=== PATIENT | male | born 1950 | race Caucasian/White ===

== ENCOUNTER 2020-06-29 12:05 | Emergency (ER) | payer OTHER ==
[~2020-06-29] VITALS: Ht 167.6 cm; Wt 70.0 kg
[2020-06-29 15:30] VITALS: BP 136/76
== END 2020-06-29 15:55 | disposition home or self-care (01) ==
LOC: EMS 12:05
DX: R45.850 Homicidal ideations (principal); F41.9 Anxiety disorder, unspecified; I10 Essential (primary) hypertension
CPT/HCPCS: 99285; Z7502